=== PATIENT | male | born 1950 | race Hispanic/Latino ===

== ENCOUNTER 2016-11-26 12:00 | Day surgery (SDC) | payer MEDICARE, MEDICAID ==
[~2016-11-26] VITALS: Ht 160 cm; Wt 85.0 kg
[~2016-11-26 12:00] MED LIST: CIPR-231 PO; DOXY50CA2 PO; LOPE2CAP PO; METR55GE TOP; POLY17PO6 PO; Sodium Chloride LOK Flush 10 mL Syringe IV PRN; fentaNYL-PF 50 mCg/mL 2 mL Inj IVPUSH PRN
[2016-11-26 12:12] VITALS: BP 144/84; PULSE 61; RESP 12; O2SAT 95
[2016-11-26] MEDS: 0.9% Sodium Chloride 1,000 ML IV SCH ×2 (13:12→13:45)
[2016-11-26 13:55] VITALS: BP 121/69; PULSE 66; RESP 16; O2SAT 95
[2016-11-26 14:05] VITALS: BP 107/69; PULSE 67; RESP 16; O2SAT 92
[2016-11-26 14:15] VITALS: BP 105/67; PULSE 62; RESP 16; O2SAT 97
--- NOTE | 2016-11-26 14:52 | ENDO ---
[address] [address] ENDOSCOPY PROCEDURE PATIENT: SUBHA HARO : 1950 MR#: [id number] ADMIT: 11/26/2016 JOB ID: [id number] DATE: 11/26/2016 PROCEDURE: Colonoscopy with cold forceps polypectomy. INDICATIONS: A 66-year-old male who reports for colonoscopy having a change in bowel habit. He has a sense of incomplete evacuation. EQUIPMENT: [employer] [place]80AL. SEDATION: Versed 3 mg, 75 mcg fentanyl. COMPLICATIONS: None identified. BOWEL PREPARATION: Fair, adequate exam. DESCRIPTION OF PROCEDURE: After the risks and benefits were explained, written and verbal informed consent was obtained. The patient was brought into the endoscopy suite and placed into the left lateral decubitus position. Sedation was achieved using the above-stated medications with the addition of oxygen via nasal cannula. A digital rectal examination was accomplished and no pathology appreciated. The scope was introduced into the rectum and advanced to the cecum as identified by the appendiceal orifice and ileocecal valve. The scope was slowly withdrawn to carefully examine the mucosa for any defects or lesions. Multiple direct views were made through the dentate line for exclusion of pathology. The colon was decompressed. The scope removed from the patient who tolerated the procedure well. FINDINGS: Diverticulosis was seen in the left colon. In the descending, there was a small polyp perhaps 3-4 mm removed with cold forceps. Mild internal hemorrhoids were noted. No other significant pathology was appreciated throughout. ENDOSCOPIC DIAGNOSES: 1. Colon polyp. 2. Diverticulosis. 3. Mild internal hemorrhoids. RECOMMENDATIONS: 1. Await histopathology. 2. Repeat colonoscopy five years if this polyp is considered adenomatous. 3. The patient is encouraged to add in a little regular fiber supplementation with 2 tablespoons of ground flaxseed mixed with 8 ounces of water or juice daily. Hopefully, this will improve his bowel habit. 4. Follow up in GI Clinic on a p.r.n. basis.
--- NOTE | 2016-11-28 15:43 | PATH ---
SURGICAL PATHOLOGY Attending Physician:Edenilson Canada CASE STATUS: Signed Out PATIENT NAME: SUBHA HARO PID: [id number] : 1950 DATE COLLECTED:11/26/2016 00:00 SPECIMEN: Colon, Biopsy CLINICAL HISTORY: COLON POLYP 1). DESCENDING COLON POLYP FINAL DIAGNOSIS: Descending Colon Polyp: Tubular adenoma. ICD10 D12.4 GROSS DESCRIPTION: The specimen is received in one formalin filled container labeled with the patient's name, sublabeled "descending colon polyp" and consists of a 0.3 x 0.2 x 0.2 CM portion of tissue which is entirely submitted in one cassette. 11/27/2016 DAC MICRO DESCRIPTION: Please see diagnosis. ICD-9 CODES: CPT CODES: 1: 01611 Electronically Signed Out Chelsy Cerna MD [facility] [address] [facility] [facility], [place] [address] Technical component performed at [facility], [address] [place] [address] Ave[address], [place], [address]
== END 2016-11-26 23:59 | disposition home or self-care (01) ==
LOC: END 12:00
PROVIDERS: ATTEND Internal Medicine Gastroenterology
DX: D12.4 Benign neoplasm of descending colon (principal); K57.30 Diverticulosis of large intestine without perforation or abscess without bleeding; K64.8 Other hemorrhoids; E11.9 Type 2 diabetes mellitus without complications; M54.12 Radiculopathy, cervical region; M47.892 Other spondylosis, cervical region
CPT/HCPCS: 45380; 99153; G0500; J7030